=== PATIENT | female | born 1990 ===

== ENCOUNTER 2020-04-15 06:22 | Day surgery (SDC) | payer OTHER ==
[2020-04-15] MEDS ORDERED: PROTONIX20 MG PO (09:46)
== END 2020-04-15 11:05 | disposition home or self-care (01) ==
LOC: AMB-ENDOS 06:22
PROVIDERS: ATTEND Surgery
DX: K31.7 Polyp of stomach and duodenum (principal); K44.9 Diaphragmatic hernia without obstruction or gangrene; Z20.828 Contact with and (suspected) exposure to other viral communicable diseases